=== PATIENT | female | born 1985 | race Caucasian/White ===

== ENCOUNTER 2022-11-16 23:57 | Emergency (ER) | payer SELFPAY ==
[2022-11-17 00:10] VITALS: BP 134/92; PULSE 96; RESP 16; TEMP 36.8; O2SAT 99; BMI 24.5
[2022-11-17 00:12] LABS: Glucose Point of Care 271 mg/dL (70-110)
[2022-11-17] MEDS: insulin regular-human 100 units/1 mL 8 UNIT SUBCUT (03:24)
[2022-11-17 03:42] LABS: Basophils % 0.3 %; Eosinophils # 0.1 10^3/uL (0.0-0.8); Eosinophils % 1.1 %; Hematocrit 42.6 % (37.0-47.0); Hemoglobin 14.2 g/dL (11.5-15.3); Lymphocytes # 3.7 10^3/uL (0.8-4.8); Lymphocytes % 34.8 %; Mean Corpuscular HGB Conc 33.3 g/dL (30.0-36.0); Mean Corpuscular Volume 90.1 fl (81-99); Monocytes # 0.3 10^3/uL (0.2-0.9); Monocytes % 3.2 %; Neutrophils # 6.45 10^3/uL (1.8-7.7); Neutrophils % 60.3 %; Nucleated Red Blood Cells % 0 %; Platelet Count 275 10^3/cmm (130-400); Red Blood Count 4.73 10^6/uL (4.1-5.3); Red Cell Distribution Width 12.2 % (12.1-15.1); White Blood Count 10.7 10^3/uL (4.0-10.0)
[2022-11-17 04:04] LABS: Alanine Aminotransferase 22 U/L (0-33); Albumin Level 4.1 g/dL (3.5-5.2); Alkaline Phosphatase 79 U/L (35-105); Aspartate Amino Transferase 13 U/L (0-32); Blood Urea Nitrogen 12 mg/dL (6-20); Calcium 9.5 mg/dL (8.5-10.5); Carbon Dioxide 26 mmol/L (22-29); Chloride 98 mmol/L (98-107); Globulin 2.9 g/dL (1.3-4.6); Glomerular Filtration Rate 180.6 mL/min (90-130); Glucose 211 mg/dL (65-115); Osmolality Calculated 286 mOsm/kg (285-295); Sodium 135 mmol/L (136-145); Total Bilirubin 0.3 mg/dL (0.15-1.2)
[2022-11-17 04:17] VITALS: RESP 16; O2SAT 98
[2022-11-17] MEDS: metformin 500 mg Tablet 1000 MG PO (04:41)
--- NOTE | 2022-11-20 21:49 | W.ED.GENADLT ---
HPI - General Adult General: Chief complaint: General Medical Stated complaint: high BS Time Seen by Provider: 11/17/22 01:42 Source: patient History of Present Illness: 37yo female with ahx of diabetes type II presents with high blood sugar. Onset (ago): day(s) Radiation: non-radiation Quality: other Pain Consistency: other Relieving factors: other Exacerbating factors: other Associated symptoms: Reports nausea; Deny chest pain, confusion, cough, dyspnea, fevers/chills, headache(s) or vomiting Treatments prior to arrival: other Review of Systems Const: Denies: fever(s) Card: Denies: chest pain Resp: Denies: dyspnea GI: Reports: nausea; Denies: abdominal pain or vomiting Neuro: Denies: headache(s) or confusion [facility] Female Reproductive History: Date of last menstrual period: 09/30/22 Physical Exam Const: COMMON NORMALS: no acute distress GENERAL APPEARANCE: cooperative and comfortable HENMT: COMMON NORMALS: normocephalic, atraumatic and Normal external nose present HEAD & SCALP: normocephalic and atraumatic FACE & SINUS: normal facial exam and face symmetric NOSE: Normal external nose present Eye: COMMON NORMALS: Equal, round and reactive pupils present and EOMs intact bilaterally PUPIL: Yes Equal, round and reactive pupils present Neck/C-Spine: GENERAL: Yes trachea midline Chest: CHEST: Yes Symmetrical chest wall rise Resp: COMMON NORMALS: normal respiratory effort, No retractions, No use of accessory muscles and clear to auscultation bilaterally AUSCULTATION: clear to auscultation bilaterally Cardio: COMMON NORMALS: regular rate and regular rhythm RATE: regular rate RHYTHM: regular rhythm GI: COMMON NORMALS: Normal to inspection, nondistended, normoactive bowel sounds present Extremity: COMMON NORMALS: no pedal edema Neuro: JOSE COMA SCALE: document GCS findings [place] coma scale eye opening: Spontaneous Jose coma scale verbal response: Orientated Jose coma scale motor response: Obey commands Jose coma scale total score: 15 SENSORY EXAM: Yes extremities (intact) Psych: COMMON NORMALS: speech normal SPEECH: Yes normal speech Skin: COMMON NORMALS: no rashes or lesions noted GENERAL SKIN EXAM: no rashes or lesions noted Course Vital Signs: Vital signs: Vital Signs Temperature 98.3 F 11/17/22 00:10 Pulse Rate 96 11/17/22 00:10 Respiratory Rate 16 12/26/22 04:17 Blood Pressure 134/92 11/17/22 00:10 Pulse Oximetry 98 11/17/22 04:17 Oxygen Delivery Me thod 11/17/22 00:10 MDM - General Adult Medical Decision Making BS is 271. Labs are stable. will have her increase metformin to 1g bid and add glipizide. she can stop the glipizide if sugar gets too low. fu with pcp in the next week. Lab Data 11/17/22 03:25 11/17/22 03:25 Laboratory Results WBC 10.7 10^3/uL (4.0-10.0) H 11/17/22 03:25 RBC 4.73 10^6/uL (4.1-5.3) 11/17/22 03:25 Hgb 14.2 g/dL (11.5-15.3) 11/17/22 03:25 Hct 42.6 % (37.0-47.0) 11/17/22 03:25 MCV 90.1 fl (81-99) 11/17/22 03:25 MCH 30.0 pg (28.0-34.0) 11/17/22 03:25 MCHC 33.3 g/dL (30.0-36.0) 11/17/22 03:25 RDW 12.2 % (12.1-15.1) 11/17/22 03:25 Plt Count 275 10^3/cmm (130-400) 11/17/22 03:25 MPV 11.0 fL (7.4-10.4) H 11/17/22 03:25 Neut % (Auto) 60.3 % 11/17/22 03:25 Lymph % (Auto) 34.8 % 11/17/22 03:25 [place] % (Auto) 3.2 % 11/17/22 03:25 Eos % (Auto) 1.1 % 11/17/22 03:25 Baso % (Auto) 0.3 % 11/17/22 03:25 Neut # (Auto) 6.45 10^3/uL (1.8-7.7) 11/17/22 03:25 Lymph # (Auto) 3.7 10^3/uL (0.8-4.8) 11/17/22 03:25 [place] # (Auto) 0.3 10^3/uL (0.2-0.9) 11/17/22 03:25 Eos # (Auto) 0.1 10^3/uL (0.0-0.8) 11/17/22 03:25 Baso # (Auto) 0.0 10^3/uL (0.0-0.1) 11/17/22 03:25 Nucleated RBC % (auto) 0 % 11/17/22 03:25 Nucleated RBCs # 0.0 /100WBC 11/17/22 03:25 Sodium 135 mmol/L (136-145) L 11/17/22 03:25 Potassium 4.0 mmol/L (3.5-5.1) 11/17/22 03:25 Chloride 98 mmol/L (98-107) 11/17/22 03:25 Carbon Dioxide 26 mmol/L (22-29) 11/17/22 03:25 Anion Gap 15.0 (5-19) 11/17/22 03:25 BUN 12 mg/dL (6-20) 11/17/22 03:25 Creatinine 0.4 mg/dL (0.5-0.9) L 11/17/22 03:25 GFR Calculation 180.6 mL/min (90-130) H 11/17/22 03:25 Glucose 211 mg/dL (65-115) H 11/17/22 03:25 POC Glucose 271 mg/dL (70-110) H 11/17/22 00:11 Calculated Osmolality 286 mOsm/kg (285-295) 11/17/22 03:25 Calcium 9.5 mg/dL (8.5-10.5) 11/17/22 03:25 Total Bilirubin 0.3 mg/dL (0.15-1.2) 11/17/22 03:25 AST 13 U/L (0-32) 11/17/22 03:25 ALT 22 U/L (0-33) 11/17/22 03:25 Alkaline Phosphatase 79 U/L (35-105) 11/17/22 03:25 Total Protein 7.0 g/dL (6.6-8.7) 11/17/22 03:25 Albumin 4.1 g/dL (3.5-5.2) 11/17/22 03:25 Globulin 2.9 g/dL (1.3-4.6) 11/17/22 03:25 Discharge Plan Discharge Patient Disposition: Home Clinical Impression: Acute hyperglycemia Condition: Stable Prescriptions: New metformin 1,000 mg tablet 1,000 mg PO BID Qty: 60 0RF glipizide 5 mg tablet 5 mg PO DAILY Qty: 30 0RF Discharge Orders: Discharge ED (Routine); Ordered 11/17/22 Ordered By: Holland Shea Discharge Diet: Diabetic Discharge Activity: Increase activity as tolerated Patient Instructions: Diabetic Hyperglycemia (ED) Activity Restrictions/Additional Instructions: Increase your metformin to 1000 mg twice daily as prescribed. You may take glipizide 5 mg daily in the morning as well. Continue to check your blood sugars often. If you notice sugars becoming too low, stop the glipizide first. Follow-up with your doctor in the next week. Return for any problems. Coding Level of Care Code ED [employer] for Nino Reich
== END 2022-11-17 04:48 | disposition home or self-care (01) ==
PROVIDERS: Emergency Provider Emergency Medicine
DX: E11.65 Type 2 diabetes mellitus with hyperglycemia (principal); Z79.84 Long term (current) use of oral hypoglycemic drugs
CPT/HCPCS: 36416; 80053; 82962; 85025; 96372; 99284; J1815